=== PATIENT | female | born 1995 | race African-American/Black ===

== ENCOUNTER 2018-09-04 22:10 | Emergency (ER) | payer MEDICAID ==
[~2018-09-04] VITALS: Ht 172.7 cm; Wt 113.6 kg
[~2018-09-04 22:10] MED LIST: PROZAC
[2018-09-04 22:14] VITALS: BP 113/61
== END 2018-09-05 02:39 | disposition left against medical advice (07) ==
LOC: ER 22:10
DX: Z53.21 Procedure and treatment not carried out due to patient leaving prior to being seen by health care provider (principal)

== ENCOUNTER 2018-09-05 03:38 | Emergency (ER) | payer MEDICAID ==
[~2018-09-05] VITALS: Ht 172.7 cm; Wt 113.6 kg
[2018-09-05] MEDS ORDERED: LIDOCAINE HCL/PF 1% 10 MG/ML 5ML VIAL IJ ONE (04:15)
[2018-09-05] MEDS ORDERED: BACITRACIN ZINC OINT UDPKT TOP ONE (04:15)
[2018-09-05 06:27] VITALS: BP 112/62
== END 2018-09-05 06:49 | disposition home or self-care (01) ==
LOC: ER 03:38
DX: L05.01 Pilonidal cyst with abscess (principal)
CPT/HCPCS: 10080; 99284; J3490